=== PATIENT | female | born 1975 | race Caucasian/White ===

== ENCOUNTER 2019-03-05 17:09 | Emergency (ER) | payer SELFPAY ==
[2019-03-05 17:27] VITALS: TEMP 98.1
--- NOTE | 2019-03-05 17:47 | ED PDOC ---
Arrival/HPI - General Chief Complaint: Shortness Of Breath Time Seen by Provider: 03/05/19 17:21 - History of Present Illness Narrative History of Present Illness (Text): 03/05/19 17:45 Patient is a 44 y/o F with asthma, presenting with asthma exacerbation. She reports that she is visiting the area today and her asthma worsened today. She reports the hot weather and her smoking likely exacerbated it. Denies chest pain. Denies leg swelling. She reports using nebulizer without relief. Denies fever. Reports productive cough. 03/05/19 19:59 Past Medical History - Infectious Disease Hx of Infectious Diseases: None - Reproductive Menopause: No - Cardiac Hx Cardiac Disorders: No - Pulmonary Hx Respiratory Disorders: Yes Hx Asthma: Yes - HEENT Hx HEENT Disorder: No - Psychiatric Hx Substance Use: No Family/Social History Family/Social History: No Known Family HX Smoking Status: Current Some Days Smoker Hx Alcohol Use: No Hx Substance Use: No Allergies/Home Meds Allergies/Adverse Reactions: Allergies No Known Allergies Allergy (Verified 03/05/19 17:30) Review of Systems - Review of Systems Constitutional: absent: Fevers Respiratory: SOB, Cough, Sputum, Wheezing Cardiovascular: absent: Chest Pain, Palpitations, Edema, Calf Pain, Orthopnea, Syncope Gastrointestinal: absent: Abdominal Pain, Constipation, Diarrhea, Nausea, Vomiting Genitourinary Female: absent: Dysuria Skin: absent: Rash Neurological: absent: Headache, Dizziness, Focal Weakness, Gait Changes Psychiatric: absent: Anxiety, Depression Physical Exam Vital Signs Temp Pulse Resp BP Pulse Ox 03/05/19 17:20 98.1 F 76 20 131/87 99 Temperature: Afebrile Blood Pressure: Normal Pulse: Regular Respiratory Rate: Normal Appearance: Positive for: Well-Appearing, Non-Toxic, Comfortable Mental Status: Positive for: Alert and Oriented X 3 - Systems Exam Head: Present: Atraumatic, Normocephalic Pupils: Present: PERRL Extroacular Muscles: Present: EOMI Conjunctiva: Present: Normal Mouth: Present: Normal Tounge Neck: Present: Normal Range of Motion Respiratory/Chest: Present: Wheezes, Decreased Breath Sounds. No: Respiratory Distress, Accessory Muscle Use Cardiovascular: Present: Regular Rate and Rhythm, Normal S1, S2 Abdomen: No: Tenderness, Distention, Rebound, Guarding Back: Present: Normal Inspection Upper Extremity: Present: Normal Inspection Lower Extremity: Present: Normal Inspection Neurological: Present: GCS=15, CN II-XII Intact, Speech Normal, Motor Func Grossly Intact, Normal Sensory Function, Normal Cerebellar Funct, Gait Normal Psychiatric: Present: Alert, Oriented x 3 Medical Decision Making ED Course and Treatment: 03/05/19 18:24 EKG shows NSR at 71bpm with isolate t wave inversion in III. Cxray negative. 03/05/19 18:36 Feeling better after nebulizers. 03/05/19 19:18 On reevaluation, wheezing is resolved. Patient feels better. She reports that she has nebulizer at home. Will dc with steroids. Made aware of ekg abnormality and need to follow-up with cardiology and PMD. 03/05/19 19:59 - RAD Interpretation Radiology Orders: 03/05/19 17:35 CHEST PORTABLE [RAD] Stat - Medication Orders Current Medication Orders: Albuterol/Ipratropium (Duoneb 3 Mg/0.5 Mg (3 Ml) Ud) 3 ml IH Q15M SHEREEN Stop: 03/05/19 18:16 Discontinued Medications Methylprednisolone (Solu-Medrol) 125 mg IVP STAT STA Stop: 03/05/19 17:36 Disposition/Present on Arrival - Present on Arrival Any Indicators Present on Arrival: No History of DVT/PE: No History of Uncontrolled Diabetes: No Urinary Catheter: No History of Decub. Ulcer: No History Surgical Site Infection Following: None - Disposition Have Diagnosis and Disposition been Completed?: Yes Diagnosis: Abnormal EKG, Asthma Disposition: HOME/ ROUTINE Disposition Time: 19:18 Patient Plan: Discharge Patient Problems: Current Active Problems Problem Status Onset Abnormal EKG Acute Asthma Acute Condition: GOOD Discharge Instructions (ExitCare): Asthma in Adults Print Language: CZECH Additional Instructions: Use albuterol inhaler as needed for wheezing. Take full course of steroids. Return to ED if condition worsens. Follow-up with PMD within 2 days. Prescriptions: Prednisone 50 mg PO DAILY #3 tablet Forms: [employer] ([employer])
[2019-03-05] MEDS: Albuterol-Ipratrop 3 mg / 0.5 (3 ml) UD IH SCH ×3 (17:50→18:21)
[2019-03-05 18:23] VITALS: RESP 18
--- NOTE | 2019-03-05 18:23 | RAD ---
HISTORY: asthma COMPARISON: None available. TECHNIQUE: Chest, one view. FINDINGS: Examination limited by habitus. LUNGS: No focal consolidation. Please note that chest x-ray has limited sensitivity for the detection of pulmonary masses. PLEURA: No significant pleural effusion identified. No definite pneumothorax . CARDIOVASCULAR: The cardiomediastinal silhouette appears within normal limits of size. No significant atherosclerotic calcification present. OSSEOUS STRUCTURES: No acute osseous abnormality identified. VISUALIZED UPPER ABDOMEN: Unremarkable. OTHER FINDINGS: None. IMPRESSION: No acute findings identified.
[2019-03-05 18:51] LABS: BASO # 0.03 K/mm3 (0.0-2.0); BASO % 0.2 % (0.0-3.0); EOS # 0.1 (0.0-0.7); EOS % 0.4 % (1.5-5.0); HEMOGLOBIN 12.6 g/dL (12.0-16.0); LYMPH # 4.3 (1.2-3.4); MEAN CELL VOLUME 89.4 fl (80.0-105.0); MEAN CORPUSCULAR HEMOGLOBIN 28.3 pg (25.0-35.0); MEAN CORPUSCULAR HGB CONC 31.7 g/dl (31.0-37.0); MONO # 0.8 (0.1-0.6); MONO % 5.3 % (1.0-6.0); RBC 4.45 10^6/uL (3.5-6.1); RED CELL DISTRIBUTION WIDTH 14.5 % (11.5-14.5); WHITE BLOOD COUNT 14.8 10^3/uL (4.5-11.0)
[2019-03-05 18:59] LABS: ALBUMIN 3.8 g/dL (3.0-4.8); ALT/SGPT 16 U/L (7-56); AST/SGOT 22 U/L (14-36); BLOOD UREA NITROGEN 17 mg/dL (7-21); CALCIUM 8.9 mg/dL (8.4-10.5); GFR NON-AFRICAN AMERICAN > 60
[2019-03-05 19:09] LABS: TROPONIN I < 0.01 ng/mL
[2019-03-05 21:44] VITALS: BP 128/76; PULSE 75; O2SAT 100
--- NOTE | 2019-03-07 19:34 | CARD ---
APPROVED REPORT Date of service: 03/05/2019 EKG Measurement Heart [id number] ID [id number] <Conclusion> Normal sinus rhythm Low voltage QRS Cannot rule out Anterior infarct, age undetermined Abnormal ECG
== END 2019-03-05 19:30 | disposition home or self-care (01) ==
LOC: ED 17:09
DX: J45.909 Unspecified asthma, uncomplicated (principal); R94.31 Abnormal electrocardiogram [ECG] [EKG]
CPT/HCPCS: 71045; 80053; 81025; 84484; 85025; 93005; 96374; 99283; J2930